=== PATIENT | male | born 1975 | race Caucasian/White ===

== ENCOUNTER 2016-12-27 10:27 | Emergency (ER) | payer BC ==
[~2016-12-27] VITALS: Ht 180.3 cm; Wt 72.6 kg
--- NOTE | 2016-12-27 10:42 | PHYS DOC ---
Adult General Chief Complaint Chief Complaint: SEIZURE HPI HPI Patient is a 41 year old male who presents after apparent seizure. Patient's girlfriend reports that she witnessed an episode of generalized body shaking lasting less than a minute. This was followed by confusion. EMS reports patient confused and combative en route to hospital; they gave him a total of 10mg versed prior to arrival. Upon arrival to ED patient unable to contribute to history. No prior history of seizure. Review of Systems Review of Systems Unable to obtain ROS due to altered mental status Current Medications Current Medications Current Medications Medications (Trade) Dose Ordered Sig/Robby Start Time Stop Time Status Last Admin Dose Admin Ondansetron HCl (Zofran) 4 mg 1X ONCE 12/27/16 12:00 12/27/16 12:01 DC Potassium Chloride (Klor-Con) 40 meq 1X ONCE 12/27/16 13:00 12/27/16 13:01 DC 12/27/16 12:50 40 MEQ Sodium Chloride (Iv Sodium Chloride 0.9% 1000ml Bag) 1,000 ml @ 1,000 mls/hr 1X ONCE 12/27/16 10:45 12/27/16 11:44 DC 12/27/16 11:20 1,000 MLS/HR Allergies Allergies Allergies Coded Allergies Type Severity Reaction Last Updated Verified No Known Drug Allergies 12/27/16 No Physical Exam Physical Exam Constitutional: Well developed, well nourished, non-toxic appearance HENT: Normocephalic, atraumatic, bilateral external ears normal Eyes: PERRL, EOMI, conjunctiva normal, no discharge Neck: Normal range of motion, no stridor Cardiovascular: Heart rate normal, regular rhythm, murmur noted Lungs & Thorax: Bilateral breath sounds clear to auscultation Abdomen: Bowel sounds normal, soft, non-distended, no TTP Skin: Warm, dry, no erythema, no rash Extremities: No obvious deformity, no edema Neurologic: Somnolent but arousable, oriented to person only, PERRL, MANNING spontaneously, follows commands only with repeated instruction Current Patient Data Vital Signs Vital Signs Date Time Temp Pulse Resp B/P Pulse Ox O2 Delivery O2 Flow Rate FiO2 12/27/16 11:19 77 18 140/77 100 Nasal Cannula 2 12/27/16 10:31 97.0 97.0 Lab Values Laboratory Tests Test 12/27/16 10:40 12/27/16 10:50 12/27/16 11:55 White Blood Count 12.1x10^3/uL (4.0-11.0) H Red Blood Count 5.00x10^6/uL (4.30-5.70) Hemoglobin 15.2g/dL (13.0-17.5) Hematocrit 44.8% (39.0-53.0) Mean Corpuscular Volume 90fL (79-100) Mean Corpuscular Hemoglobin 30pg (25-35) Mean Corpuscular Hemoglobin Concent 34g/dL (31-37) Red Cell Distribution Width 13.1% (11.5-14.5) Platelet Count 320x10^3/uL (140-400) Neutrophils (%) (Auto) 67% (31-73) Lymphocytes (%) (Auto) 25% (24-48) Monocytes (%) (Auto) 6% (0-9) Eosinophils (%) (Auto) 1% (0-3) Basophils (%) (Auto) 1% (0-3) Neutrophils # (Auto) 8.1x10^3uL (1.8-7.7) H Lymphocytes # (Auto) 3.0x10^3/uL (1.0-4.8) Monocytes # (Auto) 0.8x10^3/uL (0.0-1.1) Eosinophils # (Auto) 0.1x10^3/uL (0.0-0.7) Basophils # (Auto) 0.1x10^3/uL (0.0-0.2) Sodium Level 140mmol/L (136-145) Potassium Level 3.3mmol/L (3.5-5.1) L Chloride Level 102mmol/L (98-107) Carbon Dioxide Level 20mmol/L (21-32) L Anion Gap 18 (6-14) H Blood Urea Nitrogen 14mg/dL (8-26) Creatinine 1.1mg/dL (0.7-1.3) Estimated GFR (Cockcroft-Gault) 73.4 BUN/Creatinine Ratio 13 (6-20) Glucose Level 165mg/dL (70-99) H Lactic Acid Level 5.4mmol/L (0.4-2.0) *H 2.3mmol/L (0.4-2.0) H Calcium Level 9.1mg/dL (8.5-10.1) Magnesium Level 2.0mg/dL (1.8-2.4) Total Bilirubin 0.9mg/dL (0.2-1.0) Aspartate Amino Transferase (AST) 19U/L (15-37) Alanine Aminotransferase (ALT) 20U/L (16-63) Alkaline Phosphatase 66U/L (46-116) Total Protein 7.9g/dL (6.4-8.2) Albumin 4.1g/dL (3.4-5.0) Albumin/Globulin Ratio 1.1 (1.0-1.7) Ethyl Alcohol Level < 10mg/dL (0-10) Urine Collection Type Unknown Urine Color Yellow Urine Clarity Clear Urine pH 5.5 Urine Specific Lavina 1.020 Urine Protein 100mg/dL (NEG-TRACE) Urine Glucose (UA) Negativemg/dL (NEG) Urine Ketones (Stick) Negativemg/dL (NEG) Urine Blood Moderate (NEG) Urine Nitrite Negative (NEG) Urine Bilirubin Negative (NEG) Urine Urobilinogen Dipstick 0.2mg/dL (0.2 mg/dL) Urine Leukocyte Esterase Negative (NEG) Urine RBC 0/HPF (0-2) Urine WBC 0/HPF (0-4) Urine Squamous Epithelial Cells Few/LPF Urine Bacteria 0/HPF (0-FEW) Urine Hyaline Casts Few/HPF Urine Mucus Marked/LPF Urine Opiates Screen Neg (NEG) Urine Methadone Screen Neg (NEG) Urine Barbiturates Neg (NEG) Urine Phencyclidine Screen Neg (NEG) Urine Amphetamine/Methamphetamine Neg (NEG) Urine Benzodiazepines Screen Pos (NEG) Urine Cocaine Screen Neg (NEG) Urine Cannabinoids Screen Pos (NEG) Urine Ethyl Alcohol Neg (NEG) Laboratory Tests 12/27/16 10:40 Laboratory Tests 12/27/16 10:40 EKG EKG EKG (my read): sinus rhythm, rate 91, normal axis, QTc 462ms, nonspecific ST changes Radiology/Procedures Radiology/Procedures CT head: IMPRESSION: No acute intracranial findings. CXR: IMPRESSION: No acute pulmonary finding. Course & Med Decision Making Course & Med Decision Making Pertinent Labs and Imaging studies reviewed. (See chart for details) Patient is 41 year old male who presents s/p apparent new onset seizure. Post- ictal on arrival, also drowsy from large dose of versed given by EMS. CT head, CXR, EKG, labs ordered to evaluate. Patient given IV fluid bolus. Imaging and EKG results as above. Labs notable for lactic acidosis; repeat lactate trending down as expected. Mild hypokalemia, oral replacement ordered. Discussed results with patient, who has returned to baseline mental status and is A&Ox4. He does report feeling sore at this time. I discussed case with Dr. Null (division supervisor neurologist); ok to send patient home at this time with seizure precautions. I went over these precautions with patient and his girlfriend (no driving, etc. for 6 months). Will discharge home with instructions for follow up and return precautions. Dragon Disclaimer Dragon Disclaimer This electronic medical record was generated, in whole or in part, using a voice recognition dictation system. Departure Departure Impression: Primary Impression: Seizure Disposition: 01 HOME, SELF-CARE Condition: IMPROVED Referrals: TAMIKO NULL MD Patient Instructions: Seizure, Adult Additional Instructions: Thank you for allowing us to provide care today in the Emergency Department. Schedule a follow up appointment with your primary care doctor and a neurologist using the provided contact information. You will need to follow seizure precautions for the next 6 months as we discussed. This includes no driving, no climbing trees or onto the roof, etc. In other words, do not do any activities where you could be seriously injured if you were to have another seizure while doing it. Return promptly to the Emergency Department if you develop any new or concerning symptoms. DU SEGURA MD Dec 27, 2016 10:42
[2016-12-27] MEDS ORDERED: IV NORMAL SALINE 1000ML BAG 1,000 ML IV ONE (10:45)
[2016-12-27 10:57] LABS: BASO # 0.1 x10^3/uL (0.0-0.2); BASO % 1 % (0-3); EOS % 1 % (0-3); HEMATOCRIT 44.8 % (39.0-53.0); HEMOGLOBIN 15.2 g/dL (13.0-17.5); LYMPH % 25 % (24-48); MEAN CORPUSCULAR HEMOGLOBIN 30 pg (25-35); MEAN CORPUSCULAR HGB CONC 34 g/dL (31-37); MEAN CORPUSCULAR VOLUME 90 fL (79-100); MONO % 6 % (0-9); NEUT % 67 % (31-73); PLATELET COUNT 320 x10^3/uL (140-400); RED CELL DISTRIBUTION WIDTH 13.1 % (11.5-14.5); WHITE BLOOD COUNT 12.1 x10^3/uL (4.0-11.0)
[2016-12-27 10:59] LABS: CALCIUM 9.1 mg/dL (8.5-10.1); CREATININE 1.1 mg/dL (0.7-1.3); GFR 73.4; POTASSIUM 3.3 mmol/L (3.5-5.1)
[2016-12-27 11:01] LABS: BILIRUBIN,URINE NEGATIVE (NEG); GLUCOSE,URINE NEGATIVE (NEG); NITRITE,URINE NEGATIVE (NEG); PH,URINE 5.5; PROTEIN,URINE 100 mg/dL (NEG-TRACE); UROBILINOGEN,URINE 0.2 mg/dL (0.2 mg/dL)
[2016-12-27 11:05] LABS: ALBUMIN 4.1 g/dL (3.4-5.0); ALBUMIN/GLOBULIN RATIO 1.1 (1.0-1.7); TOTAL BILIRUBIN 0.9 mg/dL (0.2-1.0); TOTAL PROTEIN 7.9 g/dL (6.4-8.2)
[2016-12-27] MEDS ORDERED: ONDANSETRON PF 4 MG/2 ML VIAL. ONE (11:06)
[2016-12-27 11:07] LABS: BARBITURATES NEG (NEG); BENZODIAZEPINES POS (NEG); CANNABINOIDS POS (NEG); COCAINE NEG (NEG); ETHANOL, URINE NEG (NEG); METHADONE NEG (NEG); OPIATES NEG (NEG); PHENCYCLIDINE NEG (NEG)
[2016-12-27 11:16] LABS: BACTERIA,URINE 0 /HPF (0-FEW); RBC,URINE 0 /HPF (0-2); SQUAMOUS EPITHELIAL CELL,UR FEW /LPF; WBC,URINE 0 /HPF (0-4)
--- NOTE | 2016-12-27 11:16 | RAD ---
EXAM: Chest, single view. HISTORY: Seizure. COMPARISON: None. FINDINGS: A frontal view of the chest is obtained. There is no infiltrate, effusion or pneumothorax. The heart is normal in size. There are a few calcified granulomas. IMPRESSION: No acute pulmonary finding.
--- NOTE | 2016-12-27 11:36 | RAD ---
EXAM: Head CT without contrast. HISTORY: Seizure. TECHNIQUE: Computed tomographic images of the head were obtained without contrast. COMPARISON: None. FINDINGS: There is no acute or subacute extra-axial or intraparenchymal hemorrhage. There is no mass effect or midline shift. There is no hydrocephalus. The buckley-white matter differentiation pattern is intact. The visualized portions of the orbits, paranasal sinuses and mastoid air cells are unremarkable. No suspicious calvarial lesion is seen. IMPRESSION: No acute intracranial findings. PQRS Compliance Statement: One or more of the following individualized dose reduction techniques were utilized for this examination: 1. Automated exposure control 2. Adjustment of the mA and/or kV according to patient size 3. Use of iterative reconstruction technique
[2016-12-27] MEDS ORDERED: ONDANSETRON PF 4 MG/2 ML VIAL. IV ONE ×2 (12:00)
--- NOTE | 2016-12-27 12:41 | EKG ---
[facility] [address] [place] [address] Test Date: 2016-12-27 Test Time: 11:22:36 Pat Name: RUFINO JEAN Department: Room: Gender: M Soaker Helper: : 1975 Requested By: DU SEGURA Order Number: [id number] Reading MD: Maria Luz Boo Measurements Intervals [place] Rate: 91 P: 9 WV: 158 QRS: 38 QRSD: 86 T: 42 QT: 374 QTc: 462 Interpretive Statements SINUS RHYTHM LEFT ATRIAL ABNORMALITY ABNORMAL ECG RI6.01 No previous ECG available for comparison Electronically Signed On 12-27-2016 19:29:42 CDT by Maria Luz Boo
[2016-12-27 13:00] VITALS: BP 134/74
[2016-12-27] MEDS ORDERED: POTASSIUM CHLORIDE 20 MEQ TABLET.ER. PO ONE (13:00)
== END 2016-12-27 13:33 | disposition home or self-care (01) ==
LOC: ER 10:27
DX: R56.9 Unspecified convulsions (principal); E87.6 Hypokalemia; E87.2 Acidosis; R01.1 Cardiac murmur, unspecified; R41.0 Disorientation, unspecified
CPT/HCPCS: 36415; 51701; 70450; 71010; 80053; 80305; 80320; 81001; 83605; 83735; 85027; 93005; 96361; 96374; 99285; J2405; J7030; G0480; G0481